=== PATIENT | male | born 1985 | race Caucasian/White ===

== ENCOUNTER → 2019-06-03 10:22 | Outpatient (CLI) | payer BC, SELFPAY ==
[2019-06-03 09:51] VITALS: BMI 26.2
[2019-06-03 12:44] LABS: Free T3 3.1 pg/mL (2.18-3.98); T4 Free Direct 0.82 ng/dL (0.76-1.46); Thyroid Stim Hormone (TSH) 0.03 uIU/mL (0.358-3.74)
== END ==
PROVIDERS: PCP Family Medicine; Referring Provider Internal Medicine Endocrinology, Diabetes & Metabolism; Visit Provider Internal Medicine Endocrinology, Diabetes & Metabolism
DX: E05.00 Thyrotoxicosis with diffuse goiter without thyrotoxic crisis or storm (principal)
CPT/HCPCS: 36415; 84439; 84443; 84481

== ENCOUNTER → 2019-09-09 11:00 | Outpatient (CLI) | payer BC, SELFPAY ==
[2019-09-09 10:44] VITALS: BMI 26.9
[2019-09-09 12:55] LABS: Vitamin B12 506 pg/mL (211-911); Vitamin D,25 Hydroxy 34.3 ng/mL
[2019-09-09 13:09] LABS: Free T3 1.7 pg/mL (2.18-3.98); T4 Free Direct 0.29 ng/dL (0.76-1.46)
== END ==
PROVIDERS: PCP Family Medicine; Referring Provider Internal Medicine Endocrinology, Diabetes & Metabolism; Visit Provider Internal Medicine Endocrinology, Diabetes & Metabolism
DX: E05.90 Thyrotoxicosis, unspecified without thyrotoxic crisis or storm (principal); E55.9 Vitamin D deficiency, unspecified; R20.2 Paresthesia of skin; R25.2 Cramp and spasm
CPT/HCPCS: 36415; 82306; 82607; 84439; 84443; 84481

== ENCOUNTER → 2019-09-23 10:42 | Outpatient (CLI) | payer BC, SELFPAY ==
[2019-09-09 14:30] VITALS: BMI 26.2
[2019-09-23 13:22] LABS: Free T3 3.9 pg/mL (2.18-3.98); T4 Free Direct 1.05 ng/dL (0.76-1.46); Thyroid Stim Hormone (TSH) 1.24 uIU/mL (0.358-3.74)
== END ==
PROVIDERS: PCP Family Medicine; Referring Provider Internal Medicine Endocrinology, Diabetes & Metabolism; Visit Provider Internal Medicine Endocrinology, Diabetes & Metabolism
DX: E06.3 Autoimmune thyroiditis (principal)
CPT/HCPCS: 36415; 84439; 84443; 84481

== ENCOUNTER → 2019-10-14 13:04 | Outpatient (CLI) | payer BC, SELFPAY ==
[2019-09-09 14:30] VITALS: BMI 26.2
[2019-10-14 15:44] LABS: Free T3 2.9 pg/mL (2.18-3.98); T4 Free Direct 0.91 ng/dL (0.76-1.46); Thyroid Stim Hormone (TSH) 7.63 uIU/mL (0.358-3.74)
== END ==
PROVIDERS: PCP Family Medicine; Referring Provider Internal Medicine Endocrinology, Diabetes & Metabolism; Visit Provider Internal Medicine Endocrinology, Diabetes & Metabolism
DX: E06.3 Autoimmune thyroiditis (principal)
CPT/HCPCS: 36415; 84439; 84443; 84481

== ENCOUNTER → 2019-10-29 10:07 | Outpatient (CLI) | payer BC, SELFPAY ==
[2019-09-09 14:30] VITALS: BMI 26.2
[2019-10-29 10:51] LABS: Free T3 4.4 pg/mL (2.18-3.98); T4 Free Direct 1.35 ng/dL (0.76-1.46); Thyroid Stim Hormone (TSH) 0.12 uIU/mL (0.358-3.74)
== END ==
PROVIDERS: PCP Family Medicine; Referring Provider Internal Medicine Endocrinology, Diabetes & Metabolism; Visit Provider Internal Medicine Endocrinology, Diabetes & Metabolism
DX: E06.3 Autoimmune thyroiditis (principal)
CPT/HCPCS: 36415; 84439; 84443; 84481

== ENCOUNTER → 2020-10-19 08:28 | Outpatient (CLI) | payer BC, SELFPAY ==
[2020-10-19 08:12] VITALS: BMI 28.3
[2020-10-19 12:19] LABS: Free T3 2.9 pg/mL (2.18-3.98); T4 Free Direct 0.86 ng/dL (0.76-1.46); Thyroid Stim Hormone (TSH) 7.84 uIU/mL (0.358-3.74)
== END ==
PROVIDERS: PCP Family Medicine; Referring Provider Nurse Practitioner Family; Visit Provider Nurse Practitioner Family
DX: E06.3 Autoimmune thyroiditis (principal); E05.00 Thyrotoxicosis with diffuse goiter without thyrotoxic crisis or storm
CPT/HCPCS: 36415; 84439; 84443; 84481

== ENCOUNTER → 2021-02-04 08:22 | Outpatient (CLI) | payer BC, SELFPAY ==
[2021-02-04 12:20] LABS: Free T3 2.9 pg/mL (2.18-3.98); T4 Free Direct 1.05 ng/dL (0.76-1.46); Thyroid Stim Hormone (TSH) 4.67 uIU/mL (0.358-3.74)
== END ==
PROVIDERS: PCP Family Medicine; Referring Provider Nurse Practitioner Family; Visit Provider Nurse Practitioner Family
DX: E05.00 Thyrotoxicosis with diffuse goiter without thyrotoxic crisis or storm (principal)
CPT/HCPCS: 36415; 84439; 84443; 84481

== ENCOUNTER → 2021-10-18 | Outpatient (CLI) | payer BC, SELFPAY ==
[2021-10-18 18:43] LABS: Free T3 4.3 pg/mL (2.18-3.98); T4 Free Direct 1.14 ng/dL (0.76-1.46); Thyroid Stim Hormone (TSH) < 0.01 uIU/mL (0.358-3.74)
== END | disposition home or self-care (01) ==
LOC: LAB 16:03
PROVIDERS: PCP Family Medicine; Referring Provider Nurse Practitioner Family; Visit Provider Nurse Practitioner Family
DX: E05.00 Thyrotoxicosis with diffuse goiter without thyrotoxic crisis or storm (principal)
CPT/HCPCS: 36415; 84439; 84443; 84481

== ENCOUNTER → 2021-11-04 | Outpatient (CLI) | payer BC, SELFPAY ==
--- NOTE | 2021-11-04 10:00 | NM_ITS ---
STUDY: RADIOPHARMACEUTICAL THERAPY BY ORAL ADMINISTRATION. REASON FOR EXAM: Male, 36 years old. 15 mci for Grave''s disease -- TSH and lt;.01 (.358-3.74) -- FREE T4 1.14 (.76-1.46) -- FREE T3 4.3 (2.18-3.98) TECHNIQUE: The patient ingested 16.7 mCi of IODINE-131. COMPARISON: None. NM/Therapy I-131 IMPRESSION: The patient ingested 16.7 mCi of IODINE-131 for treatment of Graves'' disease. Electronically Signed: Meliton Gonzalez MD at 11:29 EDT ,
== END | disposition home or self-care (01) ==
LOC: NM 09:58
PROVIDERS: PCP Family Medicine; Visit Provider Internal Medicine Endocrinology, Diabetes & Metabolism
DX: E05.00 Thyrotoxicosis with diffuse goiter without thyrotoxic crisis or storm (principal)
CPT/HCPCS: 79005; A9517

== ENCOUNTER → 2023-07-20 | Outpatient (CLI) | payer BC, SELFPAY ==
--- NOTE | 2023-07-20 15:50 | RAD_ITS ---
STUDY: X-RAY - ABDOMEN/PELVIS REASON FOR EXAM: Male, 38 years old. History of multiple kidney stones. TECHNIQUE: Single AP view of the abdomen / pelvis. COMPARISON: None. FINDINGS: Normal visualized lung bases. There is an unremarkable bowel gas pattern. Small calcifications are seen in the upper pole calyx of the left kidney. The largest measures 3.5 mm. Small calcification is seen in the right hemipelvis most likely representing a phlebolith. Normal visualized osseous structures. RAD/Abdomen Single View IMPRESSION: Small calcifications are seen in the upper pole calyx of the left kidney. Electronically Signed: Meliton Gonzalez MD at 14:52 EDT ,
== END | disposition home or self-care (01) ==
LOC: RAD 15:50
PROVIDERS: PCP Family Medicine; Referring Provider Urology; Visit Provider Urology
DX: N20.1 Calculus of ureter (principal)
CPT/HCPCS: 74018